=== PATIENT | female | born 1970 | race Hispanic/Latino ===

== ENCOUNTER 2022-07-29 19:15 | Emergency (ER) | payer OTHER | END 2022-07-29 22:46 | disposition home or self-care (01) | LOC: CSHERS 19:15 | DX: I10 Essential (primary) hypertension (principal) | CPT/HCPCS: 99283 ==

== ENCOUNTER 2023-02-10 12:18 | Outpatient (CLI) | payer OTHER | END 2023-02-10 12:19 | disposition home or self-care (01) | LOC: CSHULT 12:18 | PROVIDERS: ATTEND Licensed Practical Nurse | DX: N93.9 Abnormal uterine and vaginal bleeding, unspecified (principal) | CPT/HCPCS: 76856 ==